=== PATIENT | male | born 1995 | race Hispanic/Latino ===

== ENCOUNTER 2018-11-09 12:54 | Emergency (ER) | payer OTHER ==
[2018-11-09] MEDS ORDERED: IBUPROFEN 400 MG TABLET ONE (14:19)
== END 2018-11-09 15:19 | disposition home or self-care (01) ==
LOC: EDH 12:54
DX: S16.1XXA Strain of muscle, fascia and tendon at neck level, initial encounter (principal); Z91.030 Bee allergy status; V49.49XA Driver injured in collision with other motor vehicles in traffic accident, initial encounter; Y93.89 Activity, other specified; Y92.89 Other specified places as the place of occurrence of the external cause; Y99.8 Other external cause status